=== PATIENT | male | born 1960 ===

== ENCOUNTER → 2023-12-17 13:44 | Outpatient (REF) | payer BC, SELFPAY | LOC: HWRCS 13:44 | PROVIDERS: ATTENDING PHYSICIAN Internal Medicine Cardiovascular Disease; FAMILY PHYSICIAN Internal Medicine | DX: R06.02 Shortness of breath (principal); R00.2 Palpitations | CPT/HCPCS: 93306 ==

== ENCOUNTER → 2023-12-18 08:10 | Outpatient (REF) | payer BC, SELFPAY ==
--- NOTE | 2023-12-18 09:33 | CARDSERVDEF ---
Echocardiogram with Definity completed after protocol screening completed. Allergies verified.
Patent IV site: __Left antecubital 22 G PC inserted by [facility] from [facility]___
IV site flushed with 0.9% NaCl pre and post administration.
Diluted bolus method utilized to enhance visualization of ventricular lee.
Total volume given: __8__ mL
Patient tolerated all procedures well without complications.
Heplock D/c ed at 0930, site clear, no redness, no edema. Pressure held, no bleeding, 2x2 applied and taped. No change in status.
== END ==
LOC: RCS 08:10
PROVIDERS: ATTENDING PHYSICIAN Internal Medicine Cardiovascular Disease; FAMILY PHYSICIAN Internal Medicine
DX: R06.02 Shortness of breath (principal); R00.2 Palpitations
CPT/HCPCS: 93017; 93350; Q9957